=== PATIENT | female | born 1945 | race Caucasian/White ===

== ENCOUNTER 2017-08-06 15:37 | Outpatient (CLI) | payer MEDICARE, OTHER ==
--- NOTE | 2017-08-10 16:30 | Mammography Report ---
DIGITAL SCREENING RIGHT MAMMOGRAM: 08/06/2017 CLINICAL INDICATION: A 72-year-old with personal history of left breast cancer, status post mastectom y, for screening. TECHNIQUE: Right CC and MLO views were obtained. COMPARISON: 07/2016, 07/2015, 06/2015, 03/2014, 08/2012, 06/2011, 08/2010. FINDINGS: The right breast demonstrates scattered fibroglandular densities. Coarse and punctate, typ ically benign calcifications are present. No suspicious masses, clustered microcalcifications, or reg ions of architectural distortion are identified. IMPRESSION: BENIGN FINDINGS. RECOMMENDATION: ROUTINE ANNUAL SCREENING UNLESS OTHERWISE CLINICALLY INDICATED. BIRADS CATEGORY 2-BENIGN FINDINGS. STANDARD QUALIFYING STATEMENTS 1. This examination was reviewed with the aid of Computer-Aided Detection (CAD). 2. A negative or benign imaging report should not delay biopsy if clinically suspicious findings are present. Consider surgical consultation if warranted. More than 5% of cancers are not identified by i maging. 3. Dense breasts may obscure an underlying neoplasm. 15:9:51 JOB #: [id number] EXT JOB #:[id number]
== END 2017-08-06 15:38 | disposition home or self-care (01) ==
LOC: DI 15:37
PROVIDERS: ATTEND Internal Medicine Hematology & Oncology
DX: Z12.31 Encounter for screening mammogram for malignant neoplasm of breast (principal); Z85.3 Personal history of malignant neoplasm of breast

== ENCOUNTER 2018-03-23 18:54 | Outpatient (CLI) | payer MEDICARE, OTHER ==
--- NOTE | 2018-03-24 08:16 | Ultrasound Report ---
Procedure Date: 03/23/2018 Accession Number: [id number] / [id number] Procedure: US - Ext Limited Non Vascular CPT Code: FULL RESULT: EXAM: Ext Limited Non Vascular DATE: 03/23/2018 7:27 PM CLINICAL HISTORY: NODULE EVALUATION HX OF BREAST CANCER COMPARISON: None TECHNIQUE: Real time scanning of the palpable abnormality identified by the patient, with civil rights representative static images obtained. FINDINGS: In the subcutaneous fat of the left forearm, the site of the palpable abnormality, there is an echogenic circumscribed avascular nodule, measuring 1.4 x 1.1 x 0.7 cm, compatible with a small lipoma. A second, smaller nodule is seen lateral and inferior to the first, measuring 7 x 5 x 6 mm, also compatible with a small lipoma. IMPRESSION: Small lipomas in the subcutaneous fat of the left forearm.
== END 2018-03-23 18:55 | disposition home or self-care (01) ==
LOC: DI 18:54
PROVIDERS: ATTEND Internal Medicine Hematology & Oncology
DX: D17.22 Benign lipomatous neoplasm of skin and subcutaneous tissue of left arm (principal); Z85.3 Personal history of malignant neoplasm of breast
CPT/HCPCS: 76882

== ENCOUNTER 2018-08-02 10:45 | Outpatient (CLI) | payer MEDICARE, OTHER ==
--- NOTE | 2018-08-03 15:21 | Mammography Report ---
Reason: UNI RIGHT SCREEN w GIORGI Procedure Date: 08/02/2018 Accession Number: [id number] / [id number] Procedure: ISHA - Screening Mammo Right w/Giorgi CPT Code: FULL RESULT: EXAM: Screening Mammo Right w/Giorgi DATE: 08/02/2018 11:12 AM CLINICAL HISTORY: Status post left mastectomy. For routine screening on the right. TECHNIQUE: Right CC and MLO views were obtained. COMPARISON: 08/06/2017, 08/01/2016, 08/03/2015, 07/26/2015, 07/05/2015 and 04/06/2014 FINDINGS: There are scattered fibroglandular densities. There is no significant interval change. No suspicious masses, clustered microcalcifications, or regions of architectural distortion are identified. IMPRESSION: Negative right examination RECOMMENDATION: Routine annual right screening unless otherwise clinically indicated. BIRADS CATEGORY 1: Negative STANDARD QUALIFYING STATEMENTS: 1. This examination was not reviewed with the aid of Computer-Aided Detection (CAD). 2. A negative or benign imaging report should not delay biopsy if clinically suspicious findings are present. Consider surgical consultation if warrented. More than 5% of cancers are not identified by imaging. 3. Dense breasts may obscure an underlying neoplasm. 4. This examination was reviewed with the aid of 3D breast imaging (tomosynthesis).
== END 2018-08-02 10:46 | disposition home or self-care (01) ==
LOC: DI 10:45
PROVIDERS: ATTEND Physician Assistant Medical
DX: Z12.31 Encounter for screening mammogram for malignant neoplasm of breast (principal); Z90.12 Acquired absence of left breast and nipple
CPT/HCPCS: 77063

== ENCOUNTER 2018-11-05 08:00 | Outpatient (CLI) | payer MEDICARE, OTHER ==
[2018-11-05 13:37] LABS: ALBUMIN 3.4 g/dL (3.2-5.5); BILIRUBIN,TOTAL 0.2 mg/dL (0.2-1.0); CALCIUM 8.7 mg/dL (8.5-10.3); CREATININE 0.6 mg/dL (0.4-1.0); TOTAL PROTEIN 6.8 g/dL (6.7-8.2)
== END 2018-11-05 23:59 | disposition home or self-care (01) ==
LOC: LAB.WCP 08:00
PROVIDERS: ATTEND Physician Assistant Medical
DX: R74.8 Abnormal levels of other serum enzymes (principal)
CPT/HCPCS: 36415; 80053

== ENCOUNTER 2019-03-21 08:57 | Outpatient (CLI) | payer MEDICARE, OTHER ==
--- NOTE | 2019-03-21 10:33 | Ultrasound Report ---
Reason: ELEVATED LIVER ENZYMES Procedure Date: 03/21/2019 Accession Number: [id number] / [id number] Procedure: US - Abdomen Limited CPT Code: FULL RESULT: EXAM: ABDOMEN ULTRASOUND LIMITED, RUQ EXAM DATE: 03/21/2019 10:05 AM. CLINICAL HISTORY: ELEVATED LIVER ENZYMES. COMPARISON: None. TECHNIQUE: Real-time scanning was performed with static images obtained. FINDINGS: Liver: Diffusely echogenic liver parenchyma without focal mass. 13.3 cm. Main portal vein flow: Hepatopetal. Gallbladder: Normal. No stones, wall thickening, or sonographic Robledo's sign. Biliary System: CBD measures 3.0 mm. No intrahepatic or extrahepatic ductal dilatation. Other: Right renal length is 10.6 cm. There is mild right hydronephrosis of unknown etiology. IMPRESSION: 1. Diffusely echogenic liver parenchyma without focal mass or hepatomegaly. This is a nonspecific finding, most often associated with steatosis. 2. Mild right hydronephrosis of unknown etiology. 3. Otherwise negative examination. RADIA
== END 2019-03-21 08:58 | disposition home or self-care (01) ==
LOC: DI 08:57
PROVIDERS: ATTEND Physician Assistant Medical
DX: N13.30 Unspecified hydronephrosis (principal)
CPT/HCPCS: 76705

== ENCOUNTER 2019-08-03 09:41 | Outpatient (CLI) | payer MEDICARE, OTHER ==
--- NOTE | 2019-08-03 11:32 | Mammography Report ---
Reason: SCREENING MAMMO Procedure Date: 08/03/2019 Accession Number: [id number] / [id number] Procedure: ISHA - Screening Mammo Right w/Dwayne CPT Code: FULL RESULT: EXAM: Screening Mammo Right w/Dwayne DATE: 08/03/2019 10:20 AM CLINICAL HISTORY: Status post left mastectomy for routine screening on the right TECHNIQUE: (R) - Right CC and MLO views were obtained. COMPARISON: 08/02/2018, 08/06/2017, 08/01/2016, 08/03/2015, 07/26/2015, 07/05/2015 and 04/06/2014 FINDINGS: There are scattered fibroglandular densities. No significant interval change. There are no suspicious masses, calcifications, or areas of distortion. IMPRESSION: Negative examination. BI-RADS category 1. RECOMMENDATION: (ANNUAL) - Recommend routine annual screening mammography. BI-RADS CATEGORY: (1) - Negative. STANDARD QUALIFYING STATEMENTS: 1. This examination was not reviewed with the aid of Computer-Aided Detection (CAD). 2. A negative or benign imaging report should not preclude biopsy if clinically suspicious findings are present. 3. Dense breasts may obscure an underlying neoplasm. 4. This examination was reviewed with the aid of 3D breast imaging (tomosynthesis).
== END 2019-08-03 09:42 | disposition home or self-care (01) ==
LOC: DI 09:41
DX: Z12.31 Encounter for screening mammogram for malignant neoplasm of breast (principal); Z90.12 Acquired absence of left breast and nipple
CPT/HCPCS: 77063

== ENCOUNTER 2019-08-19 08:35 | Outpatient (CLI) | payer MEDICARE, OTHER ==
[2019-08-19 13:39] LABS: BASOPHILS # (AUTO) 0.1 10^3/uL (0.0-0.1); BASOPHILS % (AUTO) 1.2 %; EOSINOPHILS # (AUTO) 0.6 10^3/uL (0.0-0.7); EOSINOPHILS % (AUTO) 12.3 %; HGB - HEMOGLOBIN 14.2 g/dL (12.0-16.0); LYMPHOCYTES # (AUTO) 1.4 10^3/uL (1.5-3.5); LYMPHOCYTES % (AUTO) 28.8 %; MEAN CORPUSCULAR HEMOGLOBIN 30.5 pg (27.0-31.0); MEAN CORPUSCULAR HGB CONC 30.7 g/dL (32.0-36.0); MEAN CORPUSCULAR VOLUME 99.4 fL (81.0-99.0); MEAN PLATELET VOLUME 11.1 fL (7.9-10.8); MONOCYTES # (AUTO) 0.4 10^3/uL (0.0-1.0); MONOCYTES % (AUTO) 7.2 %; NEUTROPHILS # (AUTO) 2.4 10^3/uL (1.5-6.6); NEUTROPHILS % (AUTO) 50.3 %; PLT - PLATELET COUNT 270 10^3/uL (130-450); RED BLOOD COUNT 4.66 10^6/uL (4.20-5.40); RED CELL DISTRIBUTION WIDTH 13.8 % (12.0-15.0); WHITE BLOOD COUNT 4.9 x10^3/uL (4.8-10.8)
[2019-08-19 14:33] LABS: ALBUMIN 3.5 g/dL (3.2-5.5); ALBUMIN/GLOBULIN RATIO 1.1 (1.0-2.2); ALKALINE PHOSPHATASE 71 IU/L (42-121); ALT ALANINE AMINOTRANSFERASE 33 IU/L (10-60); AST ASPARTATE AMINOTRANSFERASE 29 IU/L (10-42); BILIRUBIN,TOTAL 0.5 mg/dL (0.2-1.0); BUN - BLOOD UREA NITROGEN 25 mg/dL (6-20); CALCIUM 9.3 mg/dL (8.5-10.3); CARBON DIOXIDE - CO2 28 mmol/L (21-32); CHLORIDE 107 mmol/L (101-111); CHOLESTEROL 260 mg/dL; CREATININE 0.7 mg/dL (0.4-1.0); GFR - MDRD 82 (>89); GLUCOSE 96 mg/dL (70-100); HDL CHOLESTEROL 43 mg/dL; LDL CHOLESTEROL,CALCULATED 177 mg/dL; LDL/HDL RATIO 4.1 (<4.4); SODIUM 142 mmol/L (135-145); TOTAL PROTEIN 6.7 g/dL (6.7-8.2); VLDL CHOLESTEROL 40 mg/dL
== END 2019-08-19 23:59 | disposition home or self-care (01) ==
LOC: LAB.WCP 08:35
PROVIDERS: ATTEND Physician Assistant Medical
DX: Z00.00 Encounter for general adult medical examination without abnormal findings (principal); R79.89 Other specified abnormal findings of blood chemistry; E78.2 Mixed hyperlipidemia
CPT/HCPCS: 36415; 80053; 80061; 83721; 84443; 85025

== ENCOUNTER 2019-11-21 08:44 | Outpatient (CLI) | payer MEDICARE, OTHER ==
[2019-11-21 12:23] LABS: CHOL/HDL RATIO 5.3 (<4.4); CHOLESTEROL 240 mg/dL; HDL CHOLESTEROL 45 mg/dL; LDL CHOLESTEROL,CALCULATED 159 mg/dL; LDL/HDL RATIO 3.5 (<4.4); VLDL CHOLESTEROL 36 mg/dL
== END 2019-11-21 23:59 | disposition home or self-care (01) ==
LOC: LAB.WCP 08:44
PROVIDERS: ATTEND Physician Assistant Medical
DX: E78.2 Mixed hyperlipidemia (principal)
CPT/HCPCS: 36415; 80061; 83721

== ENCOUNTER 2020-07-26 09:06 | Outpatient (CLI) | payer MEDICARE, OTHER ==
--- NOTE | 2020-07-27 16:00 | Mammography Report ---
UNILATERAL RIGHT DIGITAL SCREENING MAMMOGRAM 3D/2D: 07/26/2020 CLINICAL: Routine screening. Personal history of left breast cancer. Comparison is made to exams dated: 08/03/2019 mammogram, 08/02/2018 mammogram, 08/06/2017 mammogram, 08/01/2016 ultrasound, 08/01/2016 mammogram, and 08/14/2015 breast MRI - [facility] . The tissue of right breast is predominantly fatty. No significant masses, calcifications, or other findings are seen in the breast. There has been no significant interval change. IMPRESSION: NEGATIVE There is no mammographic evidence of malignancy. A 1 year screening mammogram is recommended. This exam was interpreted at Station ID: [id number]. NOTE: For mammograms, a report in lay terms will be sent to the patient. Approximately 15% of breast malignancies will not be visualized mammographically. In the management of a palpable breast mass, a negative mammogram must not discourage biopsy of a clinically suspicious lesion. Electronically Signed By: Khanh dozier/pencharlie:07/26/2020 12:45:58 ACR BI-RADS Category 1: Negative 3341F PARENCHYMAL PATTERN: (F) - The breast(s) demonstrate(s) diffuse fatty replacement. BI-RADS CATEGORY: (1) - 1 RECOMMENDATION: (ANNUAL) - Recommend routine annual screening mammography. [id number] 1 year screening LATERALITY: (B)
== END 2020-07-26 09:07 | disposition home or self-care (01) ==
LOC: DI.N 09:06
DX: Z12.31 Encounter for screening mammogram for malignant neoplasm of breast (principal); Z85.3 Personal history of malignant neoplasm of breast
CPT/HCPCS: 77063; 77067

== ENCOUNTER 2020-08-02 09:31 | Outpatient (CLI) | payer MEDICARE, OTHER ==
[2020-08-02 12:21] LABS: ALBUMIN 3.7 g/dL (3.2-5.5); ALBUMIN/GLOBULIN RATIO 1.2 (1.0-2.2); ALKALINE PHOSPHATASE 73 IU/L (42-121); ALT ALANINE AMINOTRANSFERASE 30 IU/L (10-60); AST ASPARTATE AMINOTRANSFERASE 34 IU/L (10-42); BILIRUBIN,TOTAL 0.5 mg/dL (0.2-1.0); BUN - BLOOD UREA NITROGEN 16 mg/dL (6-20); CALCIUM 8.7 mg/dL (8.5-10.3); CARBON DIOXIDE - CO2 25 mmol/L (21-32); CHLORIDE 105 mmol/L (101-111); CHOLESTEROL 251 mg/dL; CREATININE 0.8 mg/dL (0.4-1.0); GLUCOSE 93 mg/dL (70-100); HDL CHOLESTEROL 42 mg/dL; LDL CHOLESTEROL,CALCULATED 154 mg/dL; LDL/HDL RATIO 3.7 (<4.4); SODIUM 139 mmol/L (135-145); TOTAL PROTEIN 6.9 g/dL (6.7-8.2); VLDL CHOLESTEROL 55 mg/dL
== END 2020-08-02 23:59 | disposition home or self-care (01) ==
LOC: LAB.WCP 09:31
PROVIDERS: ATTEND Physician Assistant Medical
DX: E78.2 Mixed hyperlipidemia (principal)
CPT/HCPCS: 36415; 80053; 80061; 83721

== ENCOUNTER 2021-01-10 09:40 | Outpatient (CLI) | payer MEDICARE ==
--- NOTE | 2021-01-10 15:28 | DEXA Report ---
PROCEDURE: Dexa Spine and/or Hip INDICATIONS: POSTMENOPAUSAL TECHNIQUE: Dual energy x-ray absorptiometry (DXA) was performed on a [employer] System. Regions measur ed are the AP Spine, femoral neck, and if needed forearm. COMPARISON: None. FINDINGS: Lumbar Spine: Bone Mineral Density 1.028 g/cm/cm,T score -1.3, mild osteopenia Left Hip: Bone Mineral Density 1.011 g/cm/cm,T score 0, normal Left Femoral Neck: Bone Mineral Density 0.961 g/cm/cm, T score -0.6, normal (T score greater or equal to -1.0: NORMAL) (T score from -1.1 to -2.4: OSTEOPENIA) (T score less than or equal to -2.5 to: OSTEOPOROSIS) Impression: Mild osteopenia within the lumbar spine. Otherwise, normal bone mineral density. Patients with diagnosis of osteoporosis or osteopenia should have regular bone mineral density assess ment. For those eligible for Medicare, routine testing is allowed once every 2 years. Testing frequ ency can be increased for patients who have rapidly progressing disease or for those who are receivin g medical therapy to restore bone mass. Reviewed by: Valencia Webb MD on 01/10/2021 3:26 PM PDT Approved by: Valencia Webb MD on 01/10/2021 3:26 PM PDT Station ID: [id number]
== END 2021-01-10 09:41 | disposition home or self-care (01) ==
LOC: DI 09:40
PROVIDERS: ATTEND Physician Assistant Medical
DX: M85.88 Other specified disorders of bone density and structure, other site (principal); Z78.0 Asymptomatic menopausal state

== ENCOUNTER 2021-07-29 09:19 | Outpatient (CLI) | payer MEDICARE ==
--- NOTE | 2021-07-30 10:21 | Mammography Report ---
BILATERAL DIGITAL SCREENING MAMMOGRAM 3D/2D: 07/29/2021 CLINICAL: Routine screening. Personal history of left breast cancer. Comparison is made to exams dated: 07/26/2020 mammogram, 08/03/2019 mammogram, 08/02/2018 mammogram, 08/06/2017 mammogram, and 08/01/2016 mammogram - [facility]. There are scattered fibroglandular elements in both breasts. No significant masses, calcifications, or other findings are seen in either breast. There has been no significant interval change. IMPRESSION: NEGATIVE There is no mammographic evidence of malignancy. A 1 year screening mammogram is recommended. This exam was interpreted at Station ID: [id number]. NOTE: For mammograms, a report in lay terms will be sent to the patient. Approximately 15% of breast malignancies will not be visualized mammographically. In the management of a palpable breast mass, a negative mammogram must not discourage biopsy of a clinically suspicious lesion. Electronically Signed By: Trell belle/penrad:07/29/2021 10:01:55 ACR BI-RADS Category 1: Negative 3341F PARENCHYMAL PATTERN: (A) - The breast(s) demonstrate(s) scattered fibroglandular densities. BI-RADS CATEGORY: (1) - 1 RECOMMENDATION: (ANNUAL) - Recommend routine annual screening mammography. [id number] 1 year screening LATERALITY: (B)
== END 2021-07-29 09:20 | disposition home or self-care (01) ==
LOC: DI.N 09:19
DX: Z12.31 Encounter for screening mammogram for malignant neoplasm of breast (principal); Z85.3 Personal history of malignant neoplasm of breast

== ENCOUNTER 2021-07-31 07:41 | Outpatient (CLI) | payer MEDICARE ==
[2021-07-31 11:43] LABS: BASOPHILS # (AUTO) 0.1 10^3/uL (0.0-0.1); BASOPHILS % (AUTO) 1.1 %; EOSINOPHILS # (AUTO) 0.4 10^3/uL (0.0-0.7); EOSINOPHILS % (AUTO) 7.1 %; HCT - HEMATOCRIT 44.9 % (37.0-47.0); HGB - HEMOGLOBIN 14.2 g/dL (12.0-16.0); LYMPHOCYTES # (AUTO) 1.5 10^3/uL (1.5-3.5); LYMPHOCYTES % (AUTO) 26.5 %; MEAN CORPUSCULAR HEMOGLOBIN 31.5 pg (27.0-31.0); MEAN CORPUSCULAR HGB CONC 31.6 g/dL (32.0-36.0); MEAN CORPUSCULAR VOLUME 99.6 fL (81.0-99.0); MEAN PLATELET VOLUME 11.3 fL (7.9-10.8); MONOCYTES # (AUTO) 0.5 10^3/uL (0.0-1.0); MONOCYTES % (AUTO) 8.8 %; NEUTROPHILS # (AUTO) 3.1 10^3/uL (1.5-6.6); NEUTROPHILS % (AUTO) 56.1 %; PLT - PLATELET COUNT 285 10^3/uL (130-450); RED BLOOD COUNT 4.51 10^6/uL (4.20-5.40); RED CELL DISTRIBUTION WIDTH 13.6 % (12.0-15.0); WHITE BLOOD COUNT 5.5 x10^3/uL (4.8-10.8)
[2021-07-31 12:06] LABS: ALBUMIN 3.7 g/dL (3.2-5.5); ALBUMIN/GLOBULIN RATIO 1.2 (1.0-2.2); ALKALINE PHOSPHATASE 64 IU/L (42-121); ALT ALANINE AMINOTRANSFERASE 21 IU/L (10-60); AST ASPARTATE AMINOTRANSFERASE 21 IU/L (10-42); BILIRUBIN,TOTAL 0.6 mg/dL (0.2-1.0); BUN - BLOOD UREA NITROGEN 21 mg/dL (6-20); CALCIUM 9.1 mg/dL (8.5-10.3); CARBON DIOXIDE - CO2 25 mmol/L (21-32); CHLORIDE 108 mmol/L (101-111); CHOL/HDL RATIO 6.2 (<4.4); CHOLESTEROL 255 mg/dL; CREATININE 0.7 mg/dL (0.4-1.0); GFR - MDRD 82 (>89); GLUCOSE 100 mg/dL (70-100); HDL CHOLESTEROL 41 mg/dL; LDL CHOLESTEROL,CALCULATED 168 mg/dL; LDL/HDL RATIO 4.1 (<4.4); POTASSIUM 4.1 mmol/L (3.5-5.0); SODIUM 141 mmol/L (135-145); TOTAL PROTEIN 6.7 g/dL (6.7-8.2); TRIGLYCERIDES 231 mg/dL; VLDL CHOLESTEROL 46 mg/dL
== END 2021-07-31 23:59 | disposition home or self-care (01) ==
LOC: LAB.WCP 07:41
PROVIDERS: ATTEND Physician Assistant Medical
DX: E78.2 Mixed hyperlipidemia (principal); K44.9 Diaphragmatic hernia without obstruction or gangrene; K21.9 Gastro-esophageal reflux disease without esophagitis
CPT/HCPCS: 36415; 80053; 80061; 83721; 85025

== ENCOUNTER 2022-02-05 07:59 | Outpatient (CLI) | payer MEDICARE ==
[2022-02-05 12:14] LABS: CHOL/HDL RATIO 5.7 (<4.4); CHOLESTEROL 262 mg/dL; HDL CHOLESTEROL 46 mg/dL; LDL CHOLESTEROL,CALCULATED 169 mg/dL; LDL/HDL RATIO 3.7 (<4.4); TRIGLYCERIDES 236 mg/dL; VLDL CHOLESTEROL 47 mg/dL
== END 2022-02-05 08:00 | disposition home or self-care (01) ==
LOC: LAB.N 07:59
PROVIDERS: ATTEND Physician Assistant Medical
DX: E78.2 Mixed hyperlipidemia (principal)
CPT/HCPCS: 36415; 80061; 83721

== ENCOUNTER 2022-03-21 08:20 | Outpatient (CLI) | payer MEDICARE ==
[2022-03-21 12:48] LABS: CHOL/HDL RATIO 4.7 (<4.4); CHOLESTEROL 194 mg/dL; HDL CHOLESTEROL 41 mg/dL; LDL CHOLESTEROL,CALCULATED 110 mg/dL; LDL/HDL RATIO 2.7 (<4.4); TRIGLYCERIDES 216 mg/dL; VLDL CHOLESTEROL 43 mg/dL
== END 2022-03-21 08:21 | disposition home or self-care (01) ==
LOC: LAB.N 08:20
PROVIDERS: ATTEND Physician Assistant Medical
DX: E78.2 Mixed hyperlipidemia (principal)
CPT/HCPCS: 36415; 80061; 83721

== ENCOUNTER 2022-07-31 09:37 | Outpatient (CLI) | payer MEDICARE ==
--- NOTE | 2022-08-01 09:44 | Mammography Report ---
BILATERAL DIGITAL SCREENING MAMMOGRAM 3D/2D: 07/31/2022 CLINICAL: Routine screening. Personal history of left breast cancer. Comparison is made to exams dated: 07/29/2021 mammogram, 07/26/2020 mammogram, 08/03/2019 mammogram, 08/02/2018 mammogram, 08/06/2017 mammogram, and 08/01/2016 ultrasound - [facility] . Both breasts are almost entirely fatty (category a/<25% glandular tissue). There are benign post operative findings in the left breast. No significant masses, calcifications, or other findings are seen in either breast. There has been no significant interval change. IMPRESSION: BENIGN There is no mammographic evidence of malignancy. A 1 year screening mammogram is recommended. This exam was interpreted at Station ID: [id number]. NOTE: For mammograms, a report in lay terms will be sent to the patient. Approximately 15% of breast malignancies will not be visualized mammographically. In the management of a palpable breast mass, a negative mammogram must not discourage biopsy of a clinically suspicious lesion. Electronically Signed By: Chiqui matute/penrad:07/31/2022 21:09:09 ACR BI-RADS Category 2: Benign Finding(s) 3342F PARENCHYMAL PATTERN: (F) - The breast(s) demonstrate(s) diffuse fatty replacement. BI-RADS CATEGORY: (2) - 2 RECOMMENDATION: (ANNUAL) - Recommend routine annual screening mammography. [id number] 1 year screening LATERALITY: (B)
== END 2022-07-31 09:38 | disposition home or self-care (01) ==
LOC: DI.N 09:37
PROVIDERS: ATTEND Internal Medicine Hematology & Oncology
DX: Z12.31 Encounter for screening mammogram for malignant neoplasm of breast (principal); Z85.3 Personal history of malignant neoplasm of breast

== ENCOUNTER 2022-09-27 09:12 | Outpatient (CLI) | payer MEDICARE ==
[2022-09-27 18:58] LABS: BASOPHILS # (AUTO) 0.1 10^3/uL (0.0-0.1); BASOPHILS % (AUTO) 0.8 %; EOSINOPHILS # (AUTO) 0.4 10^3/uL (0.0-0.7); EOSINOPHILS % (AUTO) 4.9 %; HCT - HEMATOCRIT 46.5 % (37.0-47.0); HGB - HEMOGLOBIN 14.7 g/dL (12.0-16.0); LYMPHOCYTES # (AUTO) 1.2 10^3/uL (1.5-3.5); LYMPHOCYTES % (AUTO) 14.8 %; MEAN CORPUSCULAR HEMOGLOBIN 31.1 pg (27.0-31.0); MEAN CORPUSCULAR HGB CONC 31.6 g/dL (32.0-36.0); MEAN CORPUSCULAR VOLUME 98.5 fL (81.0-99.0); MEAN PLATELET VOLUME 11.3 fL (7.9-10.8); MONOCYTES # (AUTO) 0.6 10^3/uL (0.0-1.0); MONOCYTES % (AUTO) 7.4 %; NEUTROPHILS # (AUTO) 5.9 10^3/uL (1.5-6.6); NEUTROPHILS % (AUTO) 71.9 %; PLT - PLATELET COUNT 272 10^3/uL (130-450); RED BLOOD COUNT 4.72 10^6/uL (4.20-5.40); RED CELL DISTRIBUTION WIDTH 13.8 % (12.0-15.0); WHITE BLOOD COUNT 8.2 x10^3/uL (4.8-10.8)
[2022-09-27 19:34] LABS: ALBUMIN 3.4 g/dL (3.2-5.5); ALKALINE PHOSPHATASE 60 IU/L (42-121); ALT ALANINE AMINOTRANSFERASE 23 IU/L (10-60); AST ASPARTATE AMINOTRANSFERASE 26 IU/L (10-42); BILIRUBIN,TOTAL 0.6 mg/dL (0.2-1.0); BUN - BLOOD UREA NITROGEN 17 mg/dL (6-20); CALCIUM 8.9 mg/dL (8.5-10.3); CARBON DIOXIDE - CO2 25 mmol/L (21-32); CHLORIDE 105 mmol/L (101-111); CHOL/HDL RATIO 5.3 (<4.4); CHOLESTEROL 226 mg/dL; CREATININE 0.7 mg/dL (0.4-1.0); GFR - MDRD 82 (>89); GLUCOSE 101 mg/dL (70-100); HDL CHOLESTEROL 43 mg/dL; LDL CHOLESTEROL,CALCULATED 141 mg/dL; LDL/HDL RATIO 3.3 (<4.4); POTASSIUM 4.6 mmol/L (3.5-5.0); SODIUM 139 mmol/L (135-145); TOTAL PROTEIN 6.9 g/dL (6.7-8.2); TRIGLYCERIDES 210 mg/dL; VLDL CHOLESTEROL 42 mg/dL
== END 2022-09-27 09:13 | disposition home or self-care (01) ==
LOC: LAB.N 09:12
PROVIDERS: ATTEND Physician Assistant Medical
DX: E78.2 Mixed hyperlipidemia (principal); J30.9 Allergic rhinitis, unspecified
CPT/HCPCS: 36415; 80053; 80061; 83721; 85025

== ENCOUNTER 2023-04-06 14:48 | Outpatient (CLI) | payer MEDICARE ==
--- NOTE | 2023-04-06 16:32 | XRAY Report ---
PROCEDURE: Knee 3 View LT INDICATIONS: KNEE PAIN LEFT TECHNIQUE: 3 views of the left knee(s) were acquired. COMPARISON: None. FINDINGS: Bones: No fractures or dislocations. No suspicious bony lesions. Moderate tricompartmental periar eolar articular osteophyte formation. Soft tissues: No knee joint effusion. No suspicious soft tissue calcifications or masses. IMPRESSION: Osteoarthritis. No acute fracture. No osseous lesion. If symptoms and/or clinical suspicion for patho logy continue, further assessment with repeat plain films, or advanced imaging (e.g., CT, MRI, or bon e scan) is recommended for further assessment. Reviewed by: Sherrie Marroquin MD on 04/06/2023 4:31 PM PDT Approved by: Sherrie Marroquin MD on 04/06/2023 4:31 PM PDT Station ID: [id number]
== END 2023-04-06 14:49 | disposition home or self-care (01) ==
LOC: DI.N 14:48
PROVIDERS: ATTEND Physician Assistant Medical
DX: M17.12 Unilateral primary osteoarthritis, left knee (principal)

== ENCOUNTER 2023-05-15 10:29 | Outpatient (CLI) | payer MEDICARE ==
--- NOTE | 2023-05-15 17:42 | DEXA Report ---
PROCEDURE: Dexa Spine and/or Hip INDICATIONS: POST MENOPAUSAL TECHNIQUE: Dual energy x-ray absorptiometry (DXA) was performed on a [employer] System. Regions measur ed are the AP Spine, femoral neck, and if needed forearm. COMPARISON: 01/10/2021 FINDINGS: Lumbar Spine: Bone Mineral Density 1.058 g/cm/cm,T score -1.0. Since the most recent prior study, there has been a statistically significant increase in bone mineral density by 2.9 percent. Left Femoral Neck: Bone Mineral Density 0.909 g/cm/cm, T score -0.9. Left Hip: Bone Mineral Density 1.005 g/cm/cm,T score 0.0. There has been no statistically significant change in bone mineral density since the prior study. (T score greater or equal to -1.0: NORMAL) (T score from -1.1 to -2.4: OSTEOPENIA) (T score less than or equal to -2.5 to: OSTEOPOROSIS) Impression: By WHO criteria, this patient has normal bone density. Interval statistical increase in bone minteral density of the lumbar spine. No statistical interval c hange in bone minteral density of the hip. Patients with diagnosis of osteoporosis or osteopenia should have regular bone mineral density assess ment. For those eligible for Medicare, routine testing is allowed once every 2 years. Testing frequ ency can be increased for patients who have rapidly progressing disease or for those who are receivin g medical therapy to restore bone mass. Reviewed by: Christoph Montague MD on 05/15/2023 5:40 PM PDT Approved by: Christoph Montague MD on 05/15/2023 5:40 PM PDT Station ID: [id number]
== END 2023-05-15 10:30 | disposition home or self-care (01) ==
LOC: DI 10:29
PROVIDERS: ATTEND Physician Assistant Medical
DX: Z78.0 Asymptomatic menopausal state (principal)

== ENCOUNTER 2023-07-27 19:22 | Emergency (ER) | payer MEDICARE ==
[2023-07-27 19:34] VITALS: BP 108/82; O2SAT 96
[2023-07-27] MEDS ORDERED: ONDANSETRON ODT 4 MG TABLET ONE (19:45)
[2023-07-27 20:14] LABS: BASOPHILS # (AUTO) 0.1 10^3/uL (0.0-0.1); BASOPHILS % (AUTO) 0.5 %; EOSINOPHILS % (AUTO) 0.3 %; HCT - HEMATOCRIT 45.2 % (37.0-47.0); HGB - HEMOGLOBIN 14.5 g/dL (12.0-16.0); LYMPHOCYTES # (AUTO) 2.1 10^3/uL (1.5-3.5); LYMPHOCYTES % (AUTO) 18.5 %; MEAN CORPUSCULAR HGB CONC 32.1 g/dL (32.0-36.0); MEAN CORPUSCULAR VOLUME 93.4 fL (81.0-99.0); MEAN PLATELET VOLUME 9.8 fL (7.9-10.8); MONOCYTES # (AUTO) 0.7 10^3/uL (0.0-1.0); MONOCYTES % (AUTO) 6.3 %; NEUTROPHILS # (AUTO) 8.5 10^3/uL (1.5-6.6); NEUTROPHILS % (AUTO) 73.9 %; PLT - PLATELET COUNT 239 10^3/uL (130-450); RED BLOOD COUNT 4.84 10^6/uL (4.20-5.40); RED CELL DISTRIBUTION WIDTH 15.3 % (12.0-15.0); WHITE BLOOD COUNT 11.5 x10^3/uL (4.8-10.8)
[2023-07-27 20:26] LABS: ALBUMIN 3.9 g/dL (3.2-5.5); ALBUMIN/GLOBULIN RATIO 1.3 (1.0-2.2); BILIRUBIN,TOTAL 0.5 mg/dL (0.2-1.0); CALCIUM 9.5 mg/dL (8.5-10.3); CREATININE 1.2 mg/dL (0.6-1.3); POTASSIUM 4.2 mmol/L (3.5-4.5); TOTAL PROTEIN 6.9 g/dL (6.4-8.9)
[2023-07-27] MEDS ORDERED: ONDANSETRON ODT 4 MG TABLET TL STA (20:52)
[2023-07-27] MEDS ORDERED: EPINEPHrine 1 MG/ML AMP ONE ×2 (21:47→22:01)
[2023-07-27] MEDS ORDERED: MIDAZOLAM 2 MG/2 ML VIAL ONE (21:50)
[2023-07-27] MEDS ORDERED: SUCCINYLCHOLINE 200 MG/10 ML VIAL ONE (21:51)
--- NOTE | 2023-07-27 22:14 | ED Physician Documentation ---
PD HPI CPR - Stated complaint Stated Complaint: WEAKNESS/NAUSEOUS - Chief complaint Chief Complaint: General - History obtained from History obtained from: Family - Additional information Additional information: This patient was in the ED waiting room where she had presented for nausea and vomiting, generalized weakness. The patient was noted by a bystander in the waiting room to be slumped over in her chair and appeared to not be breathing. This bystander notified staff at the registration desk who then called KIM GERA. Upon hearing the overhead CODE BLUE, I was heading down the hallway towards the waiting room area but ED staff already had the patient in a wheelchair and were bringing the patient into the ED. Patient is unconscious, unresponsive, apneic. See further narrative, below (MDM). Review of Systems Unable to obtain: Unresponsive PD PAST MEDICAL HISTORY - Past Medical History Cardiovascular: Hypertension, High cholesterol, Murmur Respiratory: None Endocrine/Autoimmune: None GI: Hiatal hernia Psych: Depression Musculoskeletal: Osteopenia - Present Medications Home Medications: Ambulatory Orders Medication Instructions Recorded Confirmed Acetaminophen 325 mg PO DAILY PRN 10/08/15 02/09/23 Cholecalciferol (Vitamin D3) 2,000 unit PO PRN PRN 10/08/15 02/09/23 [Vitamin D] Cyanocobalamin (Vitamin B-12) 1,000 mcg PO PRN PRN 10/08/15 02/09/23 [Vitamin B12] Iron 27 mg PO PRN PRN 10/08/15 02/09/23 [place]ula-3 Fatty Acids [Fish Oil] 300 mg PO PRN PRN 10/08/15 02/09/23 Omeprazole 20 mg PO PRN PRN 10/08/15 02/09/23 Rizatriptan Benzoate [Maxalt] 5 mg PO PRN PRN 10/08/15 02/09/23 Turmeric Root Extract [Turmeric] 300 mg PO UD 10/08/15 02/09/23 Vitamin A 8,000 unit PO UD 10/08/15 02/09/23 Timolol [Betimol] 1 drops EACHEYE BID 03/16/19 02/09/23 Red Yeast Rice 4 cap PO UD 03/19/20 02/09/23 Ubidecarenone [Co Q-10] 1 cap PO UD 03/19/20 02/09/23 Tamoxifen [Nolvadex] 20 mg PO DAILY 01/16/21 02/09/23 - Allergies Allergies/Adverse Reactions: Allergies Allergy/AdvReac Type Severity Reaction Status Date / Time morphine AdvReac Nausea Verified 07/27/23 19:31 Tetracyclines AdvReac Itching Verified 07/27/23 19:31 PD ED PE NORMAL - Vitals Vital signs reviewed: Yes PD ED PE EXPANDED - General General: Unresponsive - Respiratory Respiratory: Other (apneic) - Abdomen Abdomen: No: Distended - Derm Derm: Pale - GCS Eye Opening: None Motor: None Verbal: None Total: 3 Results - Vitals Vitals: Vital Signs - 24 hr 07/27/23 19:31 Temperature 36.7 C Heart Rate 113 H Respiratory 18 Rate Blood Pressure 108/82 H O2 Saturation 96 Oxygen O2 Source Room air - Labs Labs: Laboratory Tests 07/27/23 07/27/23 07:58 07:58 WBC 11.5 H RBC 4.84 Hgb 14.5 Hct 45.2 MCV 93.4 MCH 30.0 MCHC 32.1 RDW 15.3 H Plt Count 239 MPV 9.8 Neut # (Auto) 8.5 H Lymph # (Auto) 2.1 [place] # (Auto) 0.7 Eos # (Auto) 0.0 Baso # (Auto) 0.1 Absolute Nucleated RBC 0.00 Nucleated RBC % 0.0 Sodium 139 Potassium 4.2 Chloride 108 Carbon Dioxide 16 L Anion Gap 15.0 H BUN 25 H Creatinine 1.2 Estimated GFR (MDRD) 44 L Glucose 251 H Calcium 9.5 Total Bilirubin 0.5 AST 25 ALT 26 Alkaline Phosphatase 85 Total Protein 6.9 Albumin 3.9 Globulin 3.0 Albumin/Globulin Ratio 1.3 Lipase 31 - Rads (name of study) CXR Relevant Findings:: Prelim report reviewed, EMP independent interpretation of test (I reviewed the portable 1-view chest x-ray at the bedside immediately after it was taken, my interpretation is ET tube at maribel, hypoinflation of the lungs (right greater than left), no evidence of pneumothorax.), See rad report Procedures - Intubation - Major Provider: Emergency physician Medications: Succinylcholine Blade: Glidescope Tube: Size-enter number (7.0), Cuffed, Marked at teeth-enter cm (23) Route: Oral Confirmation: Direct visualization (via glidescope), Bilateral breath sounds, No abdominal breath sound, End tidal CO2, Pulse ox, Chest xray Complications: Other (initial attempt unsuccessful (vocal cords anterior but predominant issue was secretions on glidescope camera obscuring view); BVM- assisted ventilations resumed and second intubation attempt is successful) PD Medical Decision Making - ED course Complexity details: reviewed results, considered differential, d/w family ED course: Patient brought into the ED from the waiting room as a CODE BLUE. Upon being brought into the ED, she is found to be pulseless, apneic, unrespon sive. CPR started. She is put on the compliance monitor. SARAI Brown obtained IO access left tibia. ED RN subsequently placed IV RUE. Organized activity is noted on the compliance monitor; patient is thus in PEA. 1 mg of epinephrine is given IO. Fingerstick blood sugar is checked and result is 325. Following ACLS algorithms, CPR was continued with periodic pulse checks. Throughout 40 minutes of resuscitative efforts, the patient had brief periods of a faintly palpable pulse and also had brief, subtle movements of her extremities that were not purposeful. The patient repeatedly and consistently w ould lose pulses, requiring ongoing resuscitative efforts. A total of six 1- milligram doses of epinephrine were given through IV and IO. She is given 100 mg of succinylcholine to facilitate intubation. At the time that I intubated the patient, she was exhibiting a very weak gag reflex and this is why she was given succinylcholine. I checked the bedside chest x-ray as soon as it was performed; the ET tube appears to be at the maribel and thus I instructed respiratory therapist to pull the tube back 2 cm. Normal saline is started through the IV wide open. During resuscitative efforts, she is also given 1 amp of sodium bicarb. An epinephrine drip is started at 10 mcg/min. Due to her recurrent loss of pulses, this is subsequently increased to 20 mcg/min. She is also given 1 mg of IV atropine; this was given during one of her periods of transitioning from adequate heart rate, organized activity on the monitor, and palpable pulses to rapidly decreasing heart rate into bradycardic range. I performed a bedside ultrasound; there is cardiac movement on this ultrasound and no evidence of pericardial effusion. As I was performing the ultrasound, her pulse again transitioned from palpable to no palpable pulses and her heart rate was slowing from a normal rate to bradycardic range and this correlated with rapidly decreasing cardiac movement on my ultrasound. I also interrogated the hepatorenal and splenorenal interfaces; there is no evidence of free fluid. I updated family in the waiting room ("quiet room"). At that time, resuscitative efforts were ongoing and SARAI Brown continued the resuscitative efforts so that I could speak with the family. Family includes the patient's as well as the patient's daughter. Subsequently, the daughter and spouse of the patient were brought to the bedside as resuscitative efforts were continuing. Both the spouse and the daughter indicate that they would like cessation of resuscitative efforts at this point. This was 40 minutes into the resuscitative efforts. Although patient had brief return of pulses as noted above, it is notable that 25 minutes after the succinylcholine was given, the patient is not exhibiting any gagging nor any spontaneous movements. This includes no spontaneous respiratory effort. The patient was not given any sedating medications. At the direction of the family, the resuscitative efforts are stopped at 22:10. At 22:16, the patient is asystolic on the monitor. There is no spontaneous movement, no spontaneous respirations, no palpable pulses, no response to noxious stimuli (patient is intubated). Pupils are fixed and dilated. I pronounced patient at 2216. - Critical Care Time(min): 45 Time Includes: Direct patient care, Reassess patient, Document care, Coordinate care, Family consult for tx dec, See progress note Data interpretation: Labs, Pulse ox, CXR, See progress note Procedures included in critical care time: See progress note Procedures excluded from critical care time: Intubation, See progress note Departure - Departure Disposition: 20 Clinical Impression: Cardiopulmonary arrest, Forms: PCP List Discharge Date/Time: 07/28/23 02:16
--- NOTE | 2023-07-28 00:24 | XRAY Report ---
PROCEDURE: Chest for Line Placement INDICATIONS: intubation TECHNIQUE: One view of the chest was acquired. COMPARISON: None. FINDINGS: Surgical changes and devices: Tip of endotracheal tube terminates 1.6 cm above the maribel. Lungs and pleura: Low lung volumes. Nonspecific bibasilar opacities. No large pleural effusion or pn eumothorax identified. Mediastinum: Cardiac silhouette is at the upper limits of normal in size. Bones and chest wall: No suspicious bony lesions. Overlying soft tissues appear unremarkable. IMPRESSION: Endotracheal tube terminates above the maribel. low lung volumes with nonspecific bibasilar opacities possibly atelectasis aspiration or pneumonia difficult to exclude Reviewed by: Obdulio Palacio MD on 07/28/2023 12:22 AM PDT Approved by: Obdulio Palacio MD on 07/28/2023 12:22 AM PDT Station ID: [id number]
[2023-07-28] MEDS ORDERED: SODIUM CHLORIDE 0.9% 1,000 ML IV STA (06:47)
[2023-07-28] MEDS ORDERED: EPINEPHrine 1 MG/ML AMP IVP STA ×5 (06:50→06:51)
[2023-07-28] MEDS ORDERED: SUCCINYLCHOLINE 200 MG/10 ML VIAL IVP STA (06:51)
[2023-07-28] MEDS ORDERED: SODIUM BICARBONATE ABBOJECT 50 MEQ/50 ML SYRINGE IVP STA (06:51)
[2023-07-28] MEDS ORDERED: ATROPINE ABBOJECT 1 MG/10 ML SYRINGE IVP STA (06:52)
[2023-07-28] MEDS ORDERED: EPINEPHrine 4 MG in DEXTROSE 5% 246 ML IV STA (07:32)
== END 2023-07-28 02:16 | disposition expired ==
LOC: ED 19:22
DX: I46.9 Cardiac arrest, cause unspecified (principal)
CPT/HCPCS: 31500; 36415; 36680; 80053; 83690; 85025; 92950; 99291; J0330; Q0162